=== PATIENT | male | born 1985 | race Two or more races ===

== ENCOUNTER 2017-05-18 05:02 | Emergency (ER) | payer SELFPAY ==
[~2017-05-18] VITALS: Ht 170.2 cm; Wt 67.5 kg
[~2017-05-18 05:02] MED LIST: GABA800T2 PO
[2017-05-18 05:03] VITALS: BP 116/76
== END 2017-05-18 06:37 | disposition home or self-care (01) ==
LOC: ED 05:14
DX: Z00.00 Encounter for general adult medical examination without abnormal findings (principal); Y92.481 Parking lot as the place of occurrence of the external cause
CPT/HCPCS: 99281

== ENCOUNTER 2017-05-19 10:54 | Emergency (ER) | payer SELFPAY ==
[~2017-05-19] VITALS: Ht 170.2 cm; Wt 66.0 kg
[2017-05-19 10:55] VITALS: BP 117/79
[2017-05-19] MEDS ORDERED: ONDANSETRON ODT 4 MG PO ONE (11:30)
[2017-05-19] MEDS ORDERED: ONDANSETRON ODT 4 MG ONE (11:39)
== END 2017-05-19 11:57 ==
LOC: ED 11:30
DX: R11.2 Nausea with vomiting, unspecified (principal); F17.200 Nicotine dependence, unspecified, uncomplicated; Z59.0 Homelessness
CPT/HCPCS: 99284; Q0162

== ENCOUNTER 2017-05-20 05:34 | Emergency (ER) | payer SELFPAY ==
[~2017-05-20] VITALS: Ht 167.6 cm; Wt 55.0 kg
[2017-05-20 05:42] VITALS: BP 132/74
[2017-05-20] MEDS ORDERED: MUPIROCIN OINT 2%, 22GM TP ONE (06:00)
== END 2017-05-20 05:46 | disposition home or self-care (01) ==
LOC: ED 05:40
DX: L02.811 Cutaneous abscess of head [any part, except face] (principal)
CPT/HCPCS: 99282

== ENCOUNTER 2017-05-22 16:57 | Observation (INO) | payer OTHER ==
[~2017-05-22] VITALS: Ht 167.6 cm; Wt 80.0 kg
[2017-05-22 17:33] LABS: BASOPHILS # (AUTO) 0.02 x10^3/uL (0-0.1); BASOPHILS % (AUTO) 0 % (0-1); EOSINOPHILS % (AUTO) 1 % (1-7); LYMPHOCYTES # (AUTO) 1.86 x10^3/uL (1-3.4); LYMPHOCYTES % (AUTO) 28 % (22-44); MD NO; MEAN CORPUSCULAR HEMOGLOBIN 29.4 pg (27.5-34.5); MEAN CORPUSCULAR HGB CONC 33.6 g/dL (33.2-36.2); MEAN CORPUSCULAR VOLUME 87.5 fL (81-97); MEAN PLATELET VOLUME 8.3 fL (7.4-10.4); MONOCYTES # (AUTO) 0.45 x10^3/uL (0.2-0.8); MONOCYTES % (AUTO) 7 % (2-9); NEUTROPHILS # (AUTO) 4.21 x10^3/uL (1.8-6.8); NEUTROPHILS % (AUTO) 63 % (42-75); PLATELET COUNT 264 x10^3/uL (130-400); RED BLOOD COUNT 4.97 x10^6/uL (4.38-5.82); RED CELL DISTRIBUTION WIDTH 12.9 % (9.4-14.8)
[2017-05-22 17:44] LABS: ALANINE AMINOTRANSFERASE 27 U/L (12-78); ALBUMIN 3.2 g/dL (3.4-5.0); ANION GAP 9 mmol/L (5-15); CALCIUM 7.9 mg/dL (8.5-10.1); CHLORIDE 110 mmol/L (98-107); CREATININE 0.79 mg/dL (0.7-1.3)
[2017-05-22 17:46] LABS: ALKALINE PHOSPHATASE 104 U/L (45-117); BILIRUBIN,TOTAL 0.2 mg/dL (0.2-1.0); SALICYLATE LEVEL < 1.7 mg/dL (2.8-20.0); TOTAL PROTEIN 6.9 g/dL (6.4-8.2)
[2017-05-22 17:48] LABS: ACETAMINOPHEN < 2 mcg/mL (10-30)
[2017-05-22 19:41] LABS: AMPHETAMINE SCREEN, URINE Positive (Negative); BARBITURATE SCREEN, URINE Negative (Negative); BENZODIAZEPINE SCREEN, URINE Negative (Negative); CANNABINOID SCREEN, URINE Positive (Negative); COCAINE SCREEN, URINE Negative (Negative); METHADONE SCREEN, URINE Negative (Negative); OPIATE SCREEN, URINE Negative (Negative)
[2017-05-23] MEDS ORDERED: NICOTINE 21 MG/24 HR PATCH.TD24 ONE (08:22)
[2017-05-23] MEDS ORDERED: ACETAMINOPHEN 325 MG TABLET ONE (08:23)
[2017-05-23] MEDS: NICOTINE 21 MG/24 HR PATCH.TD24 TD SCH (09:00)
[2017-05-23] MEDS: ACETAMINOPHEN 325 MG TABLET PO PRN (09:00)
[2017-05-23] MEDS ORDERED: LIDOCAINE 1%, 20ML SQ ONE (10:30)
[2017-05-23] MEDS ORDERED: HALOPERIDOL 5 MG TABLET PO PRN (11:30)
[2017-05-23] MEDS ORDERED: HALOPERIDOL 5 MG/ML IM PRN (17:30)
[2017-05-23 19:36] VITALS: BP 120/81
[2017-05-24 07:42] VITALS: BP 108/76
[2017-05-24] MEDS: ACETAMINOPHEN 325 MG TABLET PO PRN ×2 (08:22→21:51)
[2017-05-24] MEDS: NICOTINE 21 MG/24 HR PATCH.TD24 TD SCH (08:22)
[2017-05-24] MEDS: HALOPERIDOL 5 MG TABLET PO PRN ×2 (08:23→21:51)
[2017-05-24 20:12] VITALS: BP 110/68
[2017-05-25 08:00] VITALS: BP 114/77
[2017-05-25] MEDS: GABAPENTIN 400 MG CAPSULE PO SCH ×4 (09:22→21:12)
[2017-05-25] MEDS: NICOTINE 21 MG/24 HR PATCH.TD24 TD SCH (09:32)
[2017-05-25] MEDS ORDERED: IBUPROFEN 800 MG TABLET PO PRN (11:00)
[2017-05-25] MEDS: HALOPERIDOL 5 MG TABLET PO PRN (17:41)
[2017-05-25] MEDS: IBUPROFEN 200 MG TABLET PO PRN (17:44)
[2017-05-25] MEDS ORDERED: KETOROLAC 30 MG/1 ML IM ONE (19:00)
[2017-05-25 20:00] VITALS: BP 99/58
[2017-05-26] MEDS: GABAPENTIN 400 MG CAPSULE PO SCH ×3 (08:05→21:26)
[2017-05-26] MEDS: NICOTINE 21 MG/24 HR PATCH.TD24 TD SCH (08:05)
[2017-05-26 08:18] VITALS: BP 97/60
[2017-05-26] MEDS: IBUPROFEN 200 MG TABLET PO PRN (08:53)
[2017-05-26] MEDS: HALOPERIDOL 5 MG TABLET PO PRN (15:14)
[2017-05-26] MEDS ORDERED: ZIPRASIDONE 20 MG INJ IM ONE (16:00)
[2017-05-26 16:07] VITALS: BP 114/72
[2017-05-26 21:31] VITALS: BP 107/63
[2017-05-27] MEDS: HALOPERIDOL 5 MG TABLET PO PRN ×2 (01:04→01:05)
[2017-05-27 07:37] VITALS: BP 81/53
[2017-05-27] MEDS: GABAPENTIN 400 MG CAPSULE PO SCH ×3 (08:30→20:10)
[2017-05-27] MEDS: NICOTINE 21 MG/24 HR PATCH.TD24 TD SCH (08:31)
[2017-05-27] MEDS ORDERED: BENZTROPINE 1 MG/ML, 2 ML ONE (13:14)
[2017-05-27] MEDS ORDERED: BENZTROPINE 1 MG/ML, 2 ML IM ONE (13:30)
[2017-05-27] MEDS ORDERED: BENZTROPINE 1 MG/ML, 2 ML IM PRN (14:00)
[2017-05-27] MEDS ORDERED: BENZTROPINE 1 MG TABLET PO PRN (14:00)
[2017-05-27] MEDS ORDERED: OLANZAPINE 5 MG TABLET PO PRN (14:00)
[2017-05-27] MEDS ORDERED: OLANZAPINE 10 MG INJ IM PRN (14:00)
[2017-05-27 19:47] VITALS: BP 119/81
[2017-05-27] MEDS ORDERED: OLANZAPINE 10 MG TABLET PO SCH (21:00)
[2017-05-28 07:21] VITALS: BP 111/77
[2017-05-28] MEDS: NICOTINE 21 MG/24 HR PATCH.TD24 TD SCH (08:20)
[2017-05-28] MEDS: GABAPENTIN 400 MG CAPSULE PO SCH (08:20)
[2017-05-28] MEDS: IBUPROFEN 200 MG TABLET PO PRN (14:51)
== END 2017-05-28 15:28 ==
LOC: ED 17:21 → EDIP 18:19 → 2N 05-23 17:07
PROVIDERS: ADMIT Internal Medicine; ATTEND Hospitalist
DX: R45.851 Suicidal ideations (principal); F32.9 Major depressive disorder, single episode, unspecified; Z59.0 Homelessness; F12.20 Cannabis dependence, uncomplicated; F15.20 Other stimulant dependence, uncomplicated; F17.200 Nicotine dependence, unspecified, uncomplicated
CPT/HCPCS: 36415; 80053; 80307; 80329; 85025; 96372; 99285; G0378; J0515; J1630; J1885; J3486; G0480

== ENCOUNTER 2017-06-05 15:10 | Emergency (ER) | payer MEDICAID, OTHER ==
[~2017-06-05] VITALS: Ht 167.6 cm; Wt 71.3 kg
[2017-06-05 15:23] VITALS: BP 121/73
== END 2017-06-05 15:50 | disposition home or self-care (01) ==
LOC: ED 15:44
DX: Z76.89 Persons encountering health services in other specified circumstances (principal)
CPT/HCPCS: 99281

== ENCOUNTER 2017-06-18 16:57 | Emergency (ER) | payer MEDICAID ==
[~2017-06-18] VITALS: Ht 170.2 cm; Wt 78.0 kg
[2017-06-18 17:00] VITALS: BP 118/77
[2017-06-18] MEDS ORDERED: IBUPROFEN 200 MG TABLET PO ONE (18:30)
[2017-06-18] MEDS ORDERED: IBUPROFEN 200 MG TABLET ONE (18:36)
== END 2017-06-18 19:11 | disposition home or self-care (01) ==
LOC: ED 18:44
DX: G89.11 Acute pain due to trauma (principal); M79.602 Pain in left arm
CPT/HCPCS: 99284

== ENCOUNTER 2017-07-21 13:09 | Emergency (ER) | payer MEDICAID ==
[~2017-07-21] VITALS: Ht 170.2 cm; Wt 82.6 kg
[2017-07-21] MEDS ORDERED: GABA-827 PO ×2 (14:07→16:34)
[2017-07-21] MEDS ORDERED: ARIP2TAB2 PO (14:07)
[2017-07-21 14:17] LABS: AMPHETAMINE SCREEN, URINE Negative (Negative); BARBITURATE SCREEN, URINE Negative (Negative); BENZODIAZEPINE SCREEN, URINE Negative (Negative); CANNABINOID SCREEN, URINE Negative (Negative); COCAINE SCREEN, URINE Negative (Negative); METHADONE SCREEN, URINE Negative (Negative); OPIATE SCREEN, URINE Negative (Negative)
[2017-07-21 14:24] LABS: BASOPHILS # (AUTO) 0.04 x10^3/uL (0-0.1); BASOPHILS % (AUTO) 1 % (0-1); EOSINOPHILS # (AUTO) 0.14 x10^3/uL (0-0.4); EOSINOPHILS % (AUTO) 2 % (1-7); LYMPHOCYTES # (AUTO) 1.92 x10^3/uL (1-3.4); LYMPHOCYTES % (AUTO) 30 % (22-44); MD NO; MEAN CORPUSCULAR HEMOGLOBIN 29.5 pg (27.5-34.5); MEAN CORPUSCULAR HGB CONC 34.2 g/dL (33.2-36.2); MEAN CORPUSCULAR VOLUME 86.2 fL (81-97); MEAN PLATELET VOLUME 9.6 fL (7.4-10.4); MONOCYTES # (AUTO) 0.52 x10^3/uL (0.2-0.8); MONOCYTES % (AUTO) 8 % (2-9); NEUTROPHILS # (AUTO) 3.72 x10^3/uL (1.8-6.8); NEUTROPHILS % (AUTO) 59 % (42-75); PLATELET COUNT 211 x10^3/uL (130-400); RED CELL DISTRIBUTION WIDTH 13.5 % (9.4-14.8)
[2017-07-21 14:32] LABS: ALBUMIN 3.6 g/dL (3.4-5.0); ANION GAP 7 mmol/L (5-15); CALCIUM 8.4 mg/dL (8.5-10.1); CHLORIDE 108 mmol/L (98-107)
[2017-07-21 14:36] LABS: ALANINE AMINOTRANSFERASE 208 U/L (12-78); ALKALINE PHOSPHATASE 154 U/L (45-117); BILIRUBIN,TOTAL 0.5 mg/dL (0.2-1.0); CREATININE 0.99 mg/dL (0.7-1.3); TOTAL PROTEIN 7.9 g/dL (6.4-8.2)
[2017-07-21 14:47] LABS: ACETAMINOPHEN < 2 mcg/mL (10-30); SALICYLATE LEVEL < 1.7 mg/dL (2.8-20.0)
[2017-07-21] MEDS ORDERED: ARIP10TA33 PO (16:34)
[2017-07-21] MEDS ORDERED: ARIPIPRAZOLE 5 MG TABLET ONE (16:50)
[2017-07-21] MEDS ORDERED: ARIPIPRAZOLE 10 MG TABLET PO ONE (17:00)
[2017-07-21 19:01] VITALS: BP 110/74
== END 2017-07-21 19:02 | disposition home or self-care (01) ==
LOC: ED 14:46
DX: F15.951 Other stimulant use, unspecified with stimulant-induced psychotic disorder with hallucinations (principal); F29 Unspecified psychosis not due to a substance or known physiological condition; Z79.899 Other long term (current) drug therapy
CPT/HCPCS: 36415; 80053; 80307; 80329; 85025; 99284; G0480

== ENCOUNTER 2017-08-14 01:16 | Emergency (ER) | payer MEDICAID ==
[~2017-08-14] VITALS: Ht 167.6 cm; Wt 83.6 kg
[~2017-08-14 01:16] MED LIST changes: +ARIP10TA33 PO; +ARIP2TAB2 PO; +GABA-827 PO
[2017-08-14 01:58] LABS: AMPHETAMINE SCREEN, URINE Negative (Negative); BARBITURATE SCREEN, URINE Negative (Negative); BENZODIAZEPINE SCREEN, URINE Negative (Negative); CANNABINOID SCREEN, URINE Positive (Negative); COCAINE SCREEN, URINE Negative (Negative); METHADONE SCREEN, URINE Negative (Negative); OPIATE SCREEN, URINE Negative (Negative)
[2017-08-14 02:00] LABS: BASOPHILS # (AUTO) 0.04 x10^3/uL (0-0.1); BASOPHILS % (AUTO) 1 % (0-1); EOSINOPHILS % (AUTO) 3 % (1-7); LYMPHOCYTES # (AUTO) 1.99 x10^3/uL (1-3.4); LYMPHOCYTES % (AUTO) 33 % (22-44); MD NO; MEAN CORPUSCULAR HEMOGLOBIN 29.4 pg (27.5-34.5); MEAN CORPUSCULAR HGB CONC 34.2 g/dL (33.2-36.2); MEAN PLATELET VOLUME 8.8 fL (7.4-10.4); MONOCYTES # (AUTO) 0.41 x10^3/uL (0.2-0.8); MONOCYTES % (AUTO) 7 % (2-9); NEUTROPHILS # (AUTO) 3.47 x10^3/uL (1.8-6.8); NEUTROPHILS % (AUTO) 57 % (42-75); PLATELET COUNT 186 x10^3/uL (130-400); RED BLOOD COUNT 5.76 x10^6/uL (4.38-5.82); RED CELL DISTRIBUTION WIDTH 13.1 % (9.4-14.8)
[2017-08-14 02:12] LABS: ALBUMIN 3.7 g/dL (3.4-5.0); ANION GAP 10 mmol/L (5-15); CALCIUM 8.2 mg/dL (8.5-10.1); CHLORIDE 111 mmol/L (98-107); CREATININE 0.93 mg/dL (0.7-1.3)
[2017-08-14 02:43] LABS: SALICYLATE LEVEL < 1.7 mg/dL (2.8-20.0)
[2017-08-14 02:44] LABS: ACETAMINOPHEN < 2 mcg/mL (10-30)
[2017-08-14 03:44] VITALS: BP 118/75
== END 2017-08-14 08:34 | disposition home or self-care (01) ==
LOC: ED 01:27
DX: F32.0 Major depressive disorder, single episode, mild (principal); Z88.0 Allergy status to penicillin
CPT/HCPCS: 36415; 80048; 80307; 80329; 82040; 85025; 99284; G0480

== ENCOUNTER 2017-08-28 05:42 | Emergency (ER) | payer MEDICAID ==
[~2017-08-28] VITALS: Ht 170.2 cm; Wt 81.7 kg
[2017-08-28 05:44] VITALS: BP 104/69
== END 2017-08-28 06:50 | disposition home or self-care (01) ==
LOC: ED 06:44
DX: J00 Acute nasopharyngitis [common cold] (principal); F32.9 Major depressive disorder, single episode, unspecified; Z72.89 Other problems related to lifestyle
CPT/HCPCS: 71046; 99284

== ENCOUNTER 2017-08-29 00:23 | Emergency (ER) | payer MEDICAID ==
[~2017-08-29] VITALS: Ht 167.6 cm; Wt 80.8 kg
[2017-08-29 00:29] VITALS: BP 104/64
== END 2017-08-29 01:42 | disposition home or self-care (01) ==
LOC: ED 00:52
DX: J00 Acute nasopharyngitis [common cold] (principal); F17.210 Nicotine dependence, cigarettes, uncomplicated; F32.9 Major depressive disorder, single episode, unspecified
CPT/HCPCS: 71046; 99284